=== PATIENT | male | born 1965 | race Two or more races ===

== ENCOUNTER 2017-07-30 10:17 | Outpatient (CLI) | payer OTHER | END 2017-07-30 10:27 | disposition home or self-care (01) | LOC: LAB 10:17 | DX: R97.20 Elevated prostate specific antigen [PSA] (principal) ==

== ENCOUNTER 2017-08-16 07:13 | Outpatient (CLI) | payer OTHER | END 2017-08-16 10:44 | disposition home or self-care (01) | LOC: SONOGRAMA 07:13 | DX: R97.20 Elevated prostate specific antigen [PSA] (principal) ==